=== PATIENT | female | born 1965 | race Caucasian/White ===

== ENCOUNTER 2017-04-23 18:06 | Emergency (ER) | payer MEDICAID ==
[~2017-04-23] VITALS: Ht 154.9 cm; Wt 51.0 kg
[~2017-04-23 18:06] MED LIST: ASPI-986 PO
[2017-04-23 19:45] LABS: BASOPHILS % 0.4 % (0.0-2.0); EOSINOPHILS % 2.3 % (0.0-5.0); HEMATOCRIT. 31.4 % (36.0-48.0); HEMOGLOBIN. 10.8 g/dL (12.0-16.0); LYMPHOCYTES % 17.7 % (20.0-50.0); MEAN CORPUSCULAR HEMOGLOBIN 29.6 pg (28.0-32.0); MEAN CORPUSCULAR VOLUME 86.4 fL (81.0-99.0); MEAN PLATELET VOLUME 7.2 fl (7.4-10.4); MONOCYTES % 5.3 % (2.0-8.0); NEUTROPHILS % 74.3 % (40.0-76.0); PLATELET 227 x1000/uL (130-400); RED BLOOD CELL COUNT 3.63 mill/uL (4.2-5.4); RED CELL DISTRIBUTION WIDTH 16.9 % (11.6-14.6)
[2017-04-23 19:51] LABS: CHLORIDE 103 mEq/L (98-107)
[2017-04-23 19:53] LABS: PROTHROMBIN TIME 10.5 sec
[2017-04-23 19:56] LABS: CARBON DIOXIDE 27 mEq/L (21-32)
[2017-04-23 20:01] VITALS: BP 153/75
== END 2017-04-23 21:24 | disposition home or self-care (01) ==
LOC: ER 18:06
DX: R04.0 Epistaxis (principal); D64.9 Anemia, unspecified; R07.9 Chest pain, unspecified; I10 Essential (primary) hypertension; Z79.82 Long term (current) use of aspirin
CPT/HCPCS: 36415; 80048; 85025; 85610; 93005; 99285; Z7610

== ENCOUNTER 2017-07-01 09:19 | Emergency (ER) | payer MEDICAID ==
[~2017-07-01] VITALS: Ht 172.7 cm; Wt 52.0 kg
[2017-07-01] MEDS ORDERED: IRON (09:34)
[2017-07-01] MEDS ORDERED: DIPH25TA23 PO (09:34)
[2017-07-01] MEDS ORDERED: HYDROCODONE/ACETAMINOPHEN 5/325MG TABLET PO STA (11:05)
[2017-07-01 11:29] LABS: BASOPHILS % 0.2 % (0.0-2.0); EOSINOPHILS % 2.5 % (0.0-5.0); HEMATOCRIT. 33.5 % (36.0-48.0); HEMOGLOBIN. 10.8 g/dL (12.0-16.0); LYMPHOCYTES % 20.8 % (20.0-50.0); MEAN CORPUSCULAR HEMOGLOBIN 24.5 pg (28.0-32.0); MEAN PLATELET VOLUME 6.6 fl (7.4-10.4); MONOCYTES % 5.5 % (2.0-8.0); PLATELET 307 x1000/uL (130-400); RED BLOOD CELL COUNT 4.41 mill/uL (4.2-5.4); RED CELL DISTRIBUTION WIDTH 17.7 % (11.6-14.6)
[2017-07-01 11:32] LABS: INR 1.1; PROTHROMBIN TIME 10.9 sec (9.4-11.6)
[2017-07-01 11:45] LABS: CARBON DIOXIDE 29 mEq/L (21-32); CHLORIDE 103 mEq/L (98-107)
[2017-07-01 12:20] LABS: HCG SCREEN NEGATIVE
[2017-07-01 12:41] VITALS: BP 136/81
== END 2017-07-01 12:46 | disposition home or self-care (01) ==
LOC: ER 11:58
DX: G89.18 Other acute postprocedural pain (principal); I10 Essential (primary) hypertension; N83.209 Unspecified ovarian cyst, unspecified side; F17.200 Nicotine dependence, unspecified, uncomplicated; Z79.82 Long term (current) use of aspirin
CPT/HCPCS: 36415; 74176; 80053; 83690; 84703; 85025; 85610; 99285; 99406; Z7610

== ENCOUNTER 2018-03-24 22:16 | Emergency (ER) | payer MEDICAID ==
[~2018-03-24] VITALS: Ht 175.3 cm; Wt 48.0 kg
[~2018-03-24 22:16] MED LIST changes: +DIPH25TA23 PO; +IRON
[2018-03-24 22:28] VITALS: BP 145/80
== END 2018-03-25 03:23 | disposition left against medical advice (07) ==
LOC: ER 22:16
DX: Z53.21 Procedure and treatment not carried out due to patient leaving prior to being seen by health care provider (principal); F17.200 Nicotine dependence, unspecified, uncomplicated

== ENCOUNTER 2018-05-14 13:34 | Emergency (ER) | payer MEDICAID ==
[~2018-05-14] VITALS: Ht 160 cm; Wt 55.0 kg
[2018-05-14 13:47] VITALS: BP 139/91
== END 2018-05-14 18:54 | disposition left against medical advice (07) ==
LOC: ER 13:34
DX: R42 Dizziness and giddiness (principal); R51 Headache; R11.0 Nausea; I10 Essential (primary) hypertension; Z90.710 Acquired absence of both cervix and uterus
CPT/HCPCS: 99281

== ENCOUNTER 2018-12-29 02:48 | Emergency (ER) | payer MEDICAID, OTHER ==
[~2018-12-29] VITALS: Ht 170.2 cm; Wt 64.0 kg
[2018-12-29 02:53] VITALS: BP 148/78
== END 2018-12-29 03:51 | disposition left against medical advice (07) ==
LOC: ER 02:48
DX: Z53.21 Procedure and treatment not carried out due to patient leaving prior to being seen by health care provider (principal)

== ENCOUNTER 2021-06-01 07:43 | Emergency (ER) | payer MEDICAID ==
[~2021-06-01] VITALS: Ht 162.6 cm; Wt 60.0 kg
[2021-06-01] MEDS ORDERED: AMOXICILLIN/POTASSIUM CLAVULANATE 875/125MG TAB PO ONE (10:30)
[2021-06-01] MEDS ORDERED: AMOX-424 MT (10:41)
[2021-06-01 10:57] VITALS: BP 127/93
== END 2021-06-01 10:58 | disposition home or self-care (01) ==
LOC: ER 07:43
DX: T63.301A Toxic effect of unspecified spider venom, accidental (unintentional), initial encounter (principal); S71.151A Open bite, right thigh, initial encounter; Y92.9 Unspecified place or not applicable; F32.9 Major depressive disorder, single episode, unspecified; F14.10 Cocaine abuse, uncomplicated; F19.10 Other psychoactive substance abuse, uncomplicated; E86.0 Dehydration; I10 Essential (primary) hypertension; D64.9 Anemia, unspecified; Z79.82 Long term (current) use of aspirin; Z90.710 Acquired absence of both cervix and uterus
CPT/HCPCS: 99283

== ENCOUNTER 2021-06-05 13:41 | Emergency (ER) | payer MEDICAID ==
[~2021-06-05] VITALS: Ht 160 cm; Wt 54.0 kg
[~2021-06-05 13:41] MED LIST changes: +AMOX-424 MT
[2021-06-05 13:49] VITALS: BP 139/89
[2021-06-05] MEDS ORDERED: AMOX-424 MT (14:16)
== END 2021-06-05 14:28 | disposition home or self-care (01) ==
LOC: ER 13:41
DX: M79.604 Pain in right leg (principal); F32.9 Major depressive disorder, single episode, unspecified; I10 Essential (primary) hypertension; F14.10 Cocaine abuse, uncomplicated; F11.10 Opioid abuse, uncomplicated; Z90.710 Acquired absence of both cervix and uterus; Z79.82 Long term (current) use of aspirin
CPT/HCPCS: 99281

== ENCOUNTER 2022-02-13 18:31 | Emergency (ER) | payer MEDICAID, OTHER ==
[~2022-02-13] VITALS: Ht 165.1 cm; Wt 59.0 kg
[2022-02-13] MEDS ORDERED: IBUPROFEN 600MG TABLET PO ONE (19:45)
[2022-02-13 19:59] LABS: BASOPHILS % 0.2 % (0.0-2.0); EOSINOPHILS % 1.8 % (0.0-5.0); HEMATOCRIT. 37.1 % (36.0-48.0); HEMOGLOBIN. 12.8 g/dL (12.0-16.0); MEAN CORPUSCULAR HEMOGLOBIN 31.8 pg (28.0-32.0); MEAN CORPUSCULAR VOLUME 92.5 fL (81.0-99.0); MEAN PLATELET VOLUME 6.4 fl (7.4-10.4); MONOCYTES % 7.6 % (2.0-8.0); NEUTROPHILS % 71.4 % (40.0-76.0); PLATELET 241 x1000/uL (130-400); RED BLOOD CELL COUNT 4.01 mill/uL (4.2-5.4); RED CELL DISTRIBUTION WIDTH 13.6 % (11.6-14.6)
[2022-02-13 20:09] LABS: CHLORIDE 103 mEq/L (98-107); PARTIAL THROMBOPLASTIN TIME 29.3 sec (23.4-31.0); PROTHROMBIN TIME 10.4 sec (9.6-11.0)
[2022-02-13 23:00] VITALS: BP 120/82
[2022-02-13] MEDS ORDERED: IBUP-2028 MT (23:20)
== END 2022-02-13 23:35 | disposition home or self-care (01) ==
LOC: ER 18:31
DX: M79.661 Pain in right lower leg (principal); R22.41 Localized swelling, mass and lump, right lower limb; I10 Essential (primary) hypertension; F32.A Depression, unspecified; F14.10 Cocaine abuse, uncomplicated; F11.10 Opioid abuse, uncomplicated; Z90.710 Acquired absence of both cervix and uterus; Z79.82 Long term (current) use of aspirin
CPT/HCPCS: 36415; 71045; 80053; 83735; 85025; 86850; 86900; 93005; 93970; 99285